=== PATIENT | male | born 1945 | race Caucasian/White ===

== ENCOUNTER → 2018-09-29 | Outpatient (CLI) | payer OTHER | LOC: RAD 11:52 | DX: J43.9 Emphysema, unspecified (principal); J98.4 Other disorders of lung; M25.78 Osteophyte, vertebrae ==

== ENCOUNTER 2018-10-20 06:52 | Inpatient (IN) | payer OTHER ==
[2018-10-20] VITALS (7 sets, daily range): BP systolic 114–141; BP diastolic 68–112
[~2018-10-20] VITALS: Ht 175.3 cm; Wt 73.5 kg
[2018-10-20 07:28] LABS: ABSOLUTE NEUTROPHILS 8.9 thou/uL (1.4-8.2); BASOPHILS 0.5 % (0.0-2.0); EOSINOPHILS 0.5 % (0.0-3.0); HEMATOCRIT 44.1 % (42.0-52.0); HEMOGLOBIN 14.2 gm/dL (14.0-18.0); LYMPHOCYTES 9.3 % (24.0-44.0); MCH 30.8 pg (26.0-34.0); MCHC 32.3 g/dL (28.0-37.0); MCV 95.4 fL (80.0-100.0); MONOCYTES 6.1 % (1.0-8.0); PLATELET COUNT 184 thou/uL (150-400); POLYS 83.6 % (36.0-66.0); RBC 4.62 mil/uL (4.50-6.00); WBC 10.7 thou/uL (4.0-11.0)
[2018-10-20 07:40] LABS: ANION GAP 9 mmol/L (7-16); BUN 13 mg/dL (7-18); CALCIUM 9.1 mg/dL (8.5-10.1); CHLORIDE 102 mmol/L (98-107); CO2 24 mmol/L (21-32); CREATININE 1.1 mg/dL (0.7-1.3); GLUCOSE 150 mg/dL (74-106); POTASSIUM 4.2 mmol/L (3.5-5.1); SODIUM 135 mmol/L (136-145)
[2018-10-20 07:47] LABS: ALBUMIN 3.9 g/dL (3.4-5.0); SGOT 28 U/L (15-37); SGPT 51 U/L (30-65); TOTAL BILIRUBIN 0.6 mg/dL (<0.1-1.0); TOTAL PROTEIN 7.8 g/dL (6.4-8.2); TROPONIN-I <0.06 ng/mL (<0.06)
--- NOTE | 2018-10-20 08:34 | EKG ---
[place] [address] [facility] [place] [address] ELECTROCARDIOGRAM REPORT Name: GORGE SHEPHERD Room #: 170-6 ADM IN M.R.#: [id number] Admission: 10/20/18 Attend Phys: Jose Armando Horta MD Discharge: Date of : 47 Report #: [id number] THIS REPORT FOR: //name// [facility] ED Test Date: 2018-10-20 Test Time: 07:04:20 Pat Name: GORGE SHEPHERD Department: Room: 170 Gender: M Business Records Manager: KF : 1945 Requested By: Jon Chaudhari Order Number: [id number] MD: Wero Resendiz Measurements Intervals [place] Rate: 101 P: 68 [place]: 119 QRS: -19 QRSD: 89 T: 43 QT: 322 QTc: 418 Interpretive Statements Sinus tachycardia Atrial premature complex Borderline left axis deviation No previous ECG available for comparison Electronically Signed On 10-20-2018 8:33:42 DISTRICT ADMINISTRATIVE ASSISTANT by Wero Resendiz [email or web address] <ELECTRONICALLY SIGNED> By: Wero Resendiz MD, [facility] 10/20/18 0833 0704 07 Wero Resendiz MD, FACC /EPI
--- NOTE | 2018-10-20 13:50 | 2DMMODE ---
[facility] [place] [address] 2 D/M-MODE ECHOCARDIOGRAM Name: GORGE SHEPHERD Room #: 364-P ADM IN M.R.#: [id number] Admission: 10/20/18 Attend Phys: Jose Armando Horta, Discharge: Date of : 47 Date of Service: 10/20/18 1350 Report #: [id number] THIS REPORT FOR: //name// APPROVED REPORT Study performed: 10/20/2018 13:02:25 EXAM: Comprehensive 2D, Doppler, and color-flow Echocardiogram Patient Location: Echo lab Room #: 364 Status: routine BSA: 1.86 HR: 93 bpm BP: 138/76 mmHg Rhythm: NSR Other Information Study Quality: Adequate Indications Chest pain, short of breath. Hx: COPD, HTN, HLP. 2D Dimensions RVDd: 32.86 mm IVSd: 9.79 (7-11mm) LVOT Diam: 20.62 (18-24mm) LVDd: 46.28 mm PWd: 8.83 (7-11mm) LVDs: 29.37 (25-40mm) Aortic Root: 35.50 mm Volumes Left Atrial Volume (Systole) Single Plane 4CH: 28.13 mL Single Plane 2CH: 39.05 mL LA ESV Index: 20.00 mL/m2 Aortic Valve AoV Peak Al.: 1.37 m/s AO Peak Gr.: 7.51 mmHg LVOT Max P.43 mmHg LVOT Max V: 1.16 m/s JOSE CARLOS Vmax: 2.84 cm2 Mitral Valve E/A Ratio: 0.7 MV Decel. Time: 169.00 ms MV E Max Al.: 0.69 m/s [facility] [employer] [place] [address] 2 D/M-MODE ECHOCARDIOGRAM Name: THALIA SHEPHERDNETH Room #: 364-P [facility] IN .R.#: [id number] Admission: 10/20/18 Attend Phys: Jose Armando Horta, Discharge: Date of : 47 Date of Service: 10/20/18 1350 Report #: [id number] A Al.: 1.00 m/s MV PHT: 49.01 ms IVRT: 96.89 ms Pulmonary Valve PV Peak Al.: 1.22 m/s PV Peak Gr.: 5.99 mmHg Pulmonary Vein P Vein S: 0.94 m/s P Vein D: 0.62 m/s P Vein S/D Ratio: 1.52 Tricuspid Valve TR Peak Al.: 2.66 m/s RAP Estimate: 5.00 mmHg TR Peak Gr.: 28.39 mmHg PA Pressure: 33.00 mmHg Left Ventricle The left ventricle is normal size. There is normal LV segmental wall motion. There is normal left ventricular wall thickness. The left ventricular systolic function is normal. LVEF is 65%. Mild diastolic dysfunction is present (impaired relaxation pattern). Right Ventricle The right ventricle is normal size. The right ventricular systolic function is normal. Atria The left atrium size is normal. The right atrium size is normal. Aortic Valve The aortic valve is normal in structure. No aortic regurgitation. There is no aortic valvular stenosis. Mitral Valve The mitral valve is normal in structure. Trace mitral regurgitation. Tricuspid Valve The tricuspid valve is normal in structure. Trace tricuspid regurgitation. Estimated PAP is 30-35mmHg. Pulmonic Valve Pulmonic valve is not well visualized. [facility] [address] [place] [address] 2 D/M-MODE ECHOCARDIOGRAM Name: GORGE SHEPHERD Room #: 364-P ADM IN M.R.#: [id number] Admission: 10/20/18 Attend Phys: Jose Armando Horta, Discharge: Date of : 47 Date of Service: 10/20/18 1350 Report #: [id number] Great Vessels The aortic root is normal in size. Ascending aorta is not well visualized. IVC is normal in size and collapses >50% with inspiration. Pericardium There is no pericardial effusion. <Conclusion> The left ventricular systolic function is normal. There is normal LV segmental wall motion. LVEF is 65%. The aortic valve is normal in structure. No aortic regurgitation or stenosis The mitral valve is normal in structure. Trace mitral regurgitation. Trace tricuspid regurgitation. Estimated pulmonary artery pressure of 30-35mmHg. There is no pericardial effusion. <ELECTRONICALLY SIGNED> By: Wero Resendiz MD, FACC 10/20/18 1350 1350 1350 Wero Resendiz MD, FACC /INF
--- NOTE | 2018-10-20 14:03 | NUR ---
received report from er Wei oviedo received. pt received to room ~1130. tele on. orientated to room. consents signed. fall contract signed and informed of fall risk precautions. o2 on @ 2lt nc. pt voiding per bs urinal. pt up w/ x1 sba w/ a steady, balanced and coordinated gait as ambulates to the [facility]. pt verbalized concern re: leaving his at home alone as he states "[place]". pt desires to figure out what is wrong and get back home kendra. pt npo for stress test, called [facility] re test, stated that staff left at noon and is "account solutions analyst" at this time. call placed to Latisha w/ [facility] re: stress test order, she states she will call dr. wolfe to see what can be done to complete this test (noted pt received 3 nitro in er and ate a brunch meal @ ~ 1000).
--- NOTE | 2018-10-20 23:05 | NUR ---
Pt refused IVF (NS) infusion at 2300 10/20/18, stating "With this thing (IVF) on, I won't be able to sleep... I'm going home tomorrow anyway, no matter what. This 'nothing by mouth' is stupid... they aren't going to do any test (stress test) tomorrow anyway, and I can have breakfast tomorrow. I don't want this thing (NS IVF)."
[2018-10-21 04:05] VITALS: BP 141/92
--- NOTE | 2018-10-21 06:25 | NUR ---
Pt a/o x 4, on O2 2L NC. C/o chest pain, pain meds given per order. VSS. Pt resting in bed comfortably at this time. No apparent distress noted. Will continue to monitor.
--- NOTE | 2018-10-21 07:57 | NUR ---
RECIEVED PT CARE APPROX 0730. A/O. DENIES PAIN AT THIS TIME. PT WANTING TO TALK TO DOCTOR. PT WANTS TO GO HOME TODAY. STATED IF HE WONT BE DISCHARGE TODAY HE WILL GO AMA. PT WORRIED ABOUT 'S SAFETY. NO OTHER CONCERNS VOICED. WILL CONT. TO MONITOR.
[2018-10-21 08:21] VITALS: BP 151/87
[2018-10-21] MEDS ORDERED: AMLODIPINE BESYL5 M1 PO (08:36)
[2018-10-21] MEDS ORDERED: PREDNISONE 20 M20 MG PO (08:36)
[2018-10-21] MEDS ORDERED: PERCOCET 10-321 EACH PO (08:36)
[2018-10-21] MEDS ORDERED: ATORVASTATIN CA40 MG PO (08:36)
[2018-10-21] MEDS ORDERED: CLOPIDOGREL75 MG PO (08:36)
[2018-10-21 09:59] VITALS: BP 151/87
--- NOTE | 2018-10-21 10:44 | NUR ---
DC ORDERS RECEIVED. EXERCISE STUDY DONE WITH RT PT DOES NOT QUALIFY FOR 02. LOWEST SAT ON RA WITH ACTIVITY WAS 95-96%.
--- NOTE | 2018-10-21 11:05 | NUR ---
DC INSTRUCTIONS ANS SCRIPTS GIVEN TO PT. PT VERBALIZED UNDERSTANDING. PT WAITING FOR TRANSPORT.
--- NOTE | 2018-10-24 14:52 | HC ---
[facility] [place] [address] CONSULTATION Name: GORGE SHEPHERD Room #: 364-P [facility] IN M.R.#: [id number] Admission: 10/20/18 Attend Phys: Jose Armando Horta MD Discharge: 10/21/18 Date of : 47 Report #: [id number] THIS REPORT FOR: //name// CC: Jose Armando Horta REASON FOR CONSULTATION: Chest pain. HISTORY OF PRESENT ILLNESS: The patient is a 73-year-old with history of coronary artery disease who recently started seeing Dr. Kinsey as a new cardiology patient. He has history of coronary artery disease, COPD, hypertension, hyperlipidemia and quit smoking about a year ago. He was at [facility] in 03/2018 with a non-ST segment elevation myocardial infarction, underwent coronary angiography and was found to have a total occlusion of the circumflex and this was unsuccessfully intervened on. There was some discussion of potentially sending the patient to the [facility] to undergo a more complex invasive procedure, but he declined. He presented to the ER with worsening exertional dyspnea, it has been going on for about a week. He has been noticing some increased wheezing. He denies any productive cough. He denies fevers, chills. Yesterday and today, he has had some chest heaviness and tightness with radiation to the neck about 6/10 in intensity and some radiation to the left arm. This did improve with few doses of sublingual nitro here in the Emergency Room. His EKG shows sinus rhythm with no ischemic changes and he is being admitted for further evaluation. PAST MEDICAL HISTORY: As mentioned above. SOCIAL HISTORY: Quit smoking. FAMILY HISTORY: Noncontributory. ALLERGIES: INCLUDE SULFA. MEDICATIONS: Based on his outpatient records, he was on Plavix 75 mg a day, gabapentin 600 mg 3 times a day, hydrocodone/acetaminophen 5/325 p.r.n. pain, mometasone cream, amlodipine 5 mg a day, pravastatin 40 mg a day. REVIEW OF SYSTEMS: GENERAL: No fevers or chills. HEENT: No blurred vision. CARDIOVASCULAR: As above. PULMONARY: No productive cough. GASTROINTESTINAL: No nausea or vomiting. GENITOURINARY: No dysuria. MUSCULOSKELETAL: No myalgias or arthralgias, but does have some back problems. ENDOCRINE: No heat or cold intolerance. NEUROLOGIC: No focal weakness. [facility] [address] [place] [address] CONSULTATION Name: GORGE SHEPHERD Room #: 364-P [facility] IN .R.#: [id number] Admission: 10/20/18 Attend Phys: Jose Armando Horta MD Discharge: 10/21/18 Date of : 47 Report #: [id number] PHYSICAL EXAMINATION: VITAL SIGNS: Temperature is 37.1, pulse 114, blood pressure 114/112, sats 98%. GENERAL: He is in no acute distress, somewhat disheveled-appearing male. HEENT: Oropharynx is clear. Sclerae are anicteric. NECK: Supple, with no thyromegaly. HEART: Regular rate and rhythm with no murmurs, rubs, gallops. LUNGS: Clear to auscultation bilaterally with some mild wheezes at the bases. ABDOMEN: Soft, nontender, nondistended with no hepatosplenomegaly. EXTREMITIES: There is no clubbing, cyanosis, edema. NEUROLOGICAL: Cranial nerves 2-12 are intact. LABORATORY DATA: White count is 10, hemoglobin 14, platelets are 184. Chemistries: Sodium 135, potassium 4.2, BUN 13, creatinine 1.1. Troponin is negative x 1. ProBNP is 341. Chest x-ray shows COPD-like changes, no pulmonary edema and the cardiac silhouette looks normal. EKG shows sinus rhythm with no ischemic changes. ASSESSMENT: 1. Unstable angina. 2. Chronic obstructive pulmonary disease exacerbation. 3. Coronary artery disease. 4. Hypertension. 5. Hyperlipidemia. PLAN: In summary, the patient has a history of CAD with a known occluded circumflex artery, presenting with shortness of breath and chest pain, likely is having a COPD exacerbation on top of possible unstable angina. We will obtain an echocardiogram and a nuclear stress test. Based on the stress test findings, we will discuss possible coronary intervention. <ELECTRONICALLY SIGNED> By: Ian Freire MD 10/24/18 1452 1113 0746 Ian Freire MD /nt
== END 2018-10-21 11:38 | disposition home or self-care (01) | DRG 190 ==
LOC: ER 06:52 → EROBS 08:00 → 3W 11:38
PROVIDERS: Emergency Medicine; ADMIT Family Medicine
DX: J44.1 Chronic obstructive pulmonary disease with (acute) exacerbation (principal); E43 Unspecified severe protein-calorie malnutrition; B02.29 Other postherpetic nervous system involvement; I25.110 Atherosclerotic heart disease of native coronary artery with unstable angina pectoris; E78.5 Hyperlipidemia, unspecified; H91.90 Unspecified hearing loss, unspecified ear; I10 Essential (primary) hypertension; Z88.2 Allergy status to sulfonamides; Z87.891 Personal history of nicotine dependence; I25.2 Old myocardial infarction
CPT/HCPCS: 10879

== ENCOUNTER 2019-01-21 15:16 | Inpatient (IN) | payer OTHER ==
[~2019-01-21] VITALS: Ht 172.7 cm; Wt 74.5 kg
[~2019-01-21 15:16] MED LIST: AMLODIPINE BESYL5 M1 PO; ATORVASTATIN CA40 MG PO; CLOPIDOGREL75 MG PO; PERCOCET 10-321 EACH PO; PREDNISONE 20 M20 MG PO
[2019-01-21 15:21] VITALS: BP 182/97
[2019-01-21] MEDS ORDERED: NORCO 7.5-3251 EACH PO (15:51)
[2019-01-21] MEDS ORDERED: PROAIR HFA8.5 GM INH (15:52)
[2019-01-21] MEDS ORDERED: PRAVACHOL40 MG PO (15:53)
[2019-01-21] MEDS ORDERED: PRINIVIL10 MG PO (15:53)
[2019-01-21] MEDS ORDERED: REMERON15 MG PO (15:54)
[2019-01-21] MEDS ORDERED: IPRAT-ALBUT 0.5-3 ML INH (15:56)
[2019-01-21 16:01] LABS: ABSOLUTE NEUTROPHILS 10.3 thou/uL (1.4-8.2); BASOPHILS 1.2 % (0.0-2.0); EOSINOPHILS 1.1 % (0.0-3.0); HEMOGLOBIN 14.3 gm/dL (14.0-18.0); LYMPHOCYTES 17.1 % (24.0-44.0); MCH 30.9 pg (26.0-34.0); MCHC 33.1 g/dL (28.0-37.0); MCV 93.2 fL (80.0-100.0); MONOCYTES 5.9 % (1.0-8.0); PLATELET COUNT 224 thou/uL (150-400); POLYS 74.7 % (36.0-66.0); RBC 4.62 mil/uL (4.50-6.00); RDW 13.4 % (10.5-14.5); WBC 13.7 thou/uL (4.0-11.0)
[2019-01-21 16:22] LABS: ANION GAP 10 mmol/L (7-16); BUN 16 mg/dL (7-18); CALCIUM 9.9 mg/dL (8.5-10.1); CHLORIDE 102 mmol/L (98-107); CO2 25 mmol/L (21-32); CREATININE 1.1 mg/dL (0.7-1.3); GLUCOSE 104 mg/dL (74-106); SODIUM 137 mmol/L (136-145); TROPONIN-I <0.06 ng/mL (<0.06)
[2019-01-21 16:25] LABS: POTASSIUM 6.2 mmol/L (3.5-5.1)
[2019-01-21 18:33] LABS: CALCIUM 8.5 mg/dL (8.5-10.1); CREATININE 0.8 mg/dL (0.7-1.3)
[2019-01-21 18:34] LABS: POTASSIUM 4.5 mmol/L (3.5-5.1)
[2019-01-21 20:09] VITALS: BP 179/85
[2019-01-21 20:20] VITALS: BP 179/85
[2019-01-21 21:04] VITALS: BP 150/80
[2019-01-21 23:33] LABS: CHOLESTEROL 142 mg/dL (<200); HDL CHOLESTEROL 46 mg/dL (>40); LDL CHOLESTEROL 77 mg/dL (<100); TC:HDL 3.1 Ratio (Not establshd); TRIGLYCERIDE 99 mg/dL (<150); VLDL 20 mg/dL (<40)
[2019-01-21 23:36] LABS: SERUM ASSESSMENT Clear
[2019-01-22 02:44] LABS: CALCIUM 9.7 mg/dL (8.5-10.1); POTASSIUM 4.4 mmol/L (3.5-5.1)
[2019-01-22 04:58] VITALS: BP 108/59
--- NOTE | 2019-01-22 05:58 | NUR ---
PATIENT ARRIVED ON UNIT AT ABOUT 1999. C/O CHEST PRESSURE THAT IS INTENSE WITH BREATHING. PT AO X4. EXPRESSES ANXIOUSNESS ABOUT WELLBEING. PT HAD ELEVATED BP BUT CURRENT BP 104/63. PT WAS NPO SINCE 0000 FOR POSSIBLE LUNG BIOPSY. PT WAS C/O OF CHEST PAIN MORE LIKELY TO BE INDIGETION. PEPCID AND CALCIUM CARBONATE GIVEN WITH MINIMAL RELIEF. PT RATES PAIN AT 6/10. PATIENT DOES NOT APPEAR TO BE IN DISTRESS AT THIS TIME. HEALTH SAFETY MANAGER NOTIFIED. EKG, AND 1 TIME XANAX ORDER. WILL CONTINUE TO FOLLOW PLAN OF CARE.
[2019-01-22 08:00] VITALS: BP 115/72
--- NOTE | 2019-01-22 08:22 | EKG ---
[address] [address] ELECTROCARDIOGRAM REPORT Name: GORGE SHEPHERD Room #: 219-P ADM IN M.R.#: [id number] ������������������ Admission: 01/21/19 ������������������ Attend Phys: Yan Cordero MD Discharge: ������������������ Date of : 47 Report #: [id number] ����������������������������������������������������������������� [id number] THIS REPORT FOR: //name// [facility] ED Test Date: 2019-01-21 Test Time: 15:24:09 Pat Name: GORGE SHEPHERD Department: Room: 219 Gender: M Broadcast Correspondent: MODE : 1945 Requested By: Massimo Cardona Order Number: [id number] MD: Ian Freire Measurements Intervals [place] Rate: 96 P: 54 [place]: 126 QRS: -15 QRSD: 92 T: 35 QT: 323 QTc: 409 Interpretive Statements Sinus rhythm Borderline left axis deviation Borderline low voltage, extremity leads Compared to ECG 10/20/2018 07:04:20 Sinus tachycardia no longer present Atrial premature complex(es) no longer present Electronically Signed On 01-22-2019 8:22:24 CDT by Ian Freire [email or web address] ��������������������������������������������� <ELECTRONICALLY SIGNED> ���������������������������������������� By: Ian Freire MD ��������������������������������������������� 01/22/19 0822 1524 1524 Ian Freire MD /EPI
--- NOTE | 2019-01-22 08:38 | NUR ---
Lung Bx cancelled. Nodule too small to Bx. Most likely Scar tissue per Dr Romelia Aguilar.
--- NOTE | 2019-01-22 08:38 | EKG ---
[address] [address] ELECTROCARDIOGRAM REPORT Name: GORGE SHEPHERD Room #: 219-P ADM IN M.R.#: [id number] ������������������ Admission: 01/21/19 ������������������ Attend Phys: Yan Cordero MD Discharge: ������������������ Date of : 47 Report #: [id number] ����������������������������������������������������������������� [id number] THIS REPORT FOR: //name// [facility] Test Date: 2019-01-22 Test Time: 07:33:27 Pat Name: GORGE SHEPHERD Department: Room: 219 P Gender: M Cloth Printer: ALAN : 1945 Requested By: Luh Dubon Order Number: [id number] MD: Ian Freire Measurements Intervals [place] Rate: 75 P: 62 MD: 131 QRS: -31 QRSD: 89 T: 1 QT: 373 QTc: 417 Interpretive Statements Sinus rhythm Inferior infarct, old Compared to ECG 10/20/2018 07:04:20 Myocardial infarct finding now present Sinus tachycardia no longer present Atrial premature complex(es) no longer present Electronically Signed On 01-22-2019 8:37:57 CDT by Ian Freire [email or web address] ��������������������������������������������� <ELECTRONICALLY SIGNED> ���������������������������������������� By: Ian Freire MD ��������������������������������������������� 01/22/19 0837 2 Ian Freire MD /EPI
[2019-01-22 15:17] VITALS: BP 115/72
--- NOTE | 2019-01-22 15:53 | NUR ---
ASSUMED CARE ST SHIFT CHANGE, PATIENT IS ALERT AND ORIENTED X4. DENIES ANY CP OR DISCOMFORT BUT ANXIOUS. MEDICATED FOR ANXIETY, AND PATIENT REPORTED RELIEVE. S/B DR FERREIRA AND DISCHARGE INSTRUCTIONS RECIEVED. DISCHARGE AND MEDICATION INSTRUCTIONS GIVEN TO PATIENT AND SPOUSE, AND PATIENT DISCHARGED HOME.
== END 2019-01-22 16:27 | disposition home or self-care (01) | DRG 206 ==
LOC: ER 15:16 → EROBS 19:08 → 2N 19:08 → ENTRNSPT 01-22 15:24 → EDTRNSPTSTS 01-22 15:29 → 2N 01-22 16:27
PROVIDERS: Emergency Medicine; Nurse Practitioner Acute Care; ADMIT Internal Medicine
DX: R91.1 Solitary pulmonary nodule (principal); E87.1 Hypo-osmolality and hyponatremia; J96.10 Chronic respiratory failure, unspecified whether with hypoxia or hypercapnia; J44.9 Chronic obstructive pulmonary disease, unspecified; I25.10 Atherosclerotic heart disease of native coronary artery without angina pectoris; I10 Essential (primary) hypertension; E78.5 Hyperlipidemia, unspecified; G89.29 Other chronic pain; E87.5 Hyperkalemia; J84.10 Pulmonary fibrosis, unspecified; M54.5 Low back pain; Z88.2 Allergy status to sulfonamides; Z87.891 Personal history of nicotine dependence
CPT/HCPCS: 10081

== ENCOUNTER → 2019-03-02 | Outpatient (CLI) | payer OTHER ==
[~2019-03-02] MED LIST changes: +IPRAT-ALBUT 0.5-3 ML INH; +NORCO 7.5-3251 EACH PO; +PRAVACHOL40 MG PO; +PRINIVIL10 MG PO; +PROAIR HFA8.5 GM INH; +REMERON15 MG PO
== END ==
LOC: PET 02-02 09:54
DX: J43.9 Emphysema, unspecified (principal); R91.1 Solitary pulmonary nodule; M25.78 Osteophyte, vertebrae

== ENCOUNTER → 2019-05-18 | Outpatient (CLI) | payer OTHER ==
[~2019-05-18] VITALS: Ht 175.3 cm; Wt 74.8 kg
[~2019-05-18] MED LIST changes: +ASPIR 8181 MG PO; +NORVASC5 MG PO; +PLAVIX 75 MG TA75 M1 PO; +TRELEGY ELLIPT1 EACH INH
== END | disposition home or self-care (01) ==
LOC: GI 08:13
DX: K57.30 Diverticulosis of large intestine without perforation or abscess without bleeding (principal); K64.8 Other hemorrhoids; K59.00 Constipation, unspecified; I10 Essential (primary) hypertension; E78.00 Pure hypercholesterolemia, unspecified; I25.10 Atherosclerotic heart disease of native coronary artery without angina pectoris; I73.9 Peripheral vascular disease, unspecified; J43.9 Emphysema, unspecified; Z95.1 Presence of aortocoronary bypass graft; Z98.890 Other specified postprocedural states; Z85.118 Personal history of other malignant neoplasm of bronchus and lung; Z88.2 Allergy status to sulfonamides; Z79.899 Other long term (current) drug therapy
CPT/HCPCS: 62110; 62900

== ENCOUNTER → 2019-06-10 | Outpatient (CLI) | payer OTHER | LOC: CAT 10:04 | DX: J43.1 Panlobular emphysema (principal); R91.1 Solitary pulmonary nodule; J84.9 Interstitial pulmonary disease, unspecified; J98.4 Other disorders of lung; I25.10 Atherosclerotic heart disease of native coronary artery without angina pectoris; N28.9 Disorder of kidney and ureter, unspecified; Z88.2 Allergy status to sulfonamides ==

== ENCOUNTER → 2019-06-24 | Outpatient (CLI) | payer OTHER ==
[2019-06-24 09:50] LABS: CREATININE 1.1 mg/dL (0.7-1.3)
== END ==
LOC: CAT 09:12
PROVIDERS: Internal Medicine Pulmonary Disease
DX: N28.1 Cyst of kidney, acquired (principal); N28.9 Disorder of kidney and ureter, unspecified; J44.9 Chronic obstructive pulmonary disease, unspecified; I70.0 Atherosclerosis of aorta; Z88.2 Allergy status to sulfonamides

== ENCOUNTER → 2020-02-16 | Outpatient (CLI) | payer OTHER | LOC: CAT 08:49 | DX: R91.1 Solitary pulmonary nodule (principal); J98.4 Other disorders of lung; I25.10 Atherosclerotic heart disease of native coronary artery without angina pectoris; M47.814 Spondylosis without myelopathy or radiculopathy, thoracic region ==

== ENCOUNTER → 2020-03-25 | Outpatient (CLI) | payer OTHER ==
[~2020-03-25] VITALS: Ht 177.8 cm; Wt 77.1 kg
[2020-03-25 10:38] LABS: HEMATOCRIT 44.5 % (42.0-52.0); HEMOGLOBIN 14.6 gm/dL (14.0-18.0); MCH 29.4 pg (26.0-34.0); MCHC 32.9 g/dL (28.0-37.0); MCV 89.2 fL (80.0-100.0); RBC 4.98 mil/uL (4.50-6.00); RDW 14.7 % (10.5-14.5); WBC 11.2 thou/uL (4.0-11.0)
[2020-03-25 11:10] LABS: APTT 27.4 Seconds (24.5-32.8); PROTIME 10.1 Seconds (9.3-11.4)
[2020-03-25 11:22] LABS: ALBUMIN 4.2 g/dL (3.4-5.0); CALCIUM 9.1 mg/dL (8.5-10.1); CREATININE 1.6 mg/dL (0.7-1.3); POTASSIUM 4.1 mmol/L (3.5-5.1); TOTAL BILIRUBIN 0.3 mg/dL (0.2-1.0); TOTAL PROTEIN 7.9 g/dL (6.4-8.2)
[2020-03-25 11:36] VITALS: BP 128/83
== END ==
LOC: CAT
PROVIDERS: ATTEND Pediatrics
DX: J43.9 Emphysema, unspecified (principal); R91.1 Solitary pulmonary nodule; R91.8 Other nonspecific abnormal finding of lung field; J84.10 Pulmonary fibrosis, unspecified